=== PATIENT | male | born 1995 | race Hispanic/Latino ===

== ENCOUNTER → 2022-11-04 07:34 | Outpatient (CLI) | payer OTHER, SELFPAY ==
--- NOTE | ~2022-11-04 | XR_ITS ---
EXAMINATION: XR sacrum coccyx min 2V DATE: 11/04/2022 07:53 INDICATION: Chronic pain at coccyx. TECHNIQUE: 3 views of the sacrum and coccyx were obtained. COMPARISON: None. FINDINGS: Bone alignment is normal. No fracture. The sacroiliac joints are normal. IMPRESSION: 1. Normal sacrum and coccyx. Reviewed, dictated and finalized at location A. [facility]
== END ==
PROVIDERS: PCP Registered Nurse; Visit Provider Registered Nurse
DX: M53.3 Sacrococcygeal disorders, not elsewhere classified (principal)
CPT/HCPCS: 72220